=== PATIENT | male | born 1985 | race Caucasian/White ===

== ENCOUNTER 2017-10-14 20:39 | Emergency (ER) | END 2017-10-14 23:42 | disposition home or self-care (01) ==

== ENCOUNTER 2018-12-12 15:16 | Emergency (ER) | payer MEDICAID ==
[~2018-12-12] VITALS: Ht 162.6 cm; Wt 74.5 kg
[~2018-12-12 15:16] MED LIST: ACET325T33 PO; ASPI1TAB2 PO; FAMO40TA5 PO; RANI150T35 PO
[2018-12-12 15:17] VITALS: BP 140/75; PULSE 69; RESP 18; Ht 162.6 cm; Wt 74.5 kg
[2018-12-12] MEDS ORDERED: OFLO5DRO7 RIGHT EAR (16:32)
--- NOTE | 2018-12-12 16:36 | ERD ---
ER Documentation Chief Complaint Chief Complaint right ear pain HPI This is a 33-year-old male presents ED with right ear pain x3 days. Denies fevers, chills, runny nose, sore throat, chest pain, shortness breath, trouble breathing and all other symptoms. Denies history of diabetes mellitus. ROS All systems reviewed and are negative except as per history of present illness. Medications Home Meds Active Scripts Ofloxacin Otic (Ofloxacin Otic) 5 Ml Drops, 10 DROP RIGHT EAR DAILY for 7 Days, #1 BOTTLE Prov:SHILPI BRAUN PA-C 12/12/18 Acetaminophen* (Tylenol*) 325 Mg Tablet, 2 TAB PO Q8 PRN for PAIN AND OR ELEVATED TEMP, #20 TAB Prov:DARYN BAGLEY MD 10/14/17 Ranitidine Hcl* (Zantac*) 150 Mg Tablet, 150 MG PO BID PRN for EPIGASTRIC PAIN, #30 TAB Prov:DARYN BAGLEY MD 10/14/17 Famotidine* (Famotidine*) 40 Mg Tablet, 40 MG PO BID, #60 TAB Prov:KRISTA MONIQUE PA-C 02/07/16 Rbcqysj-Rrmgofrpgutge-Aeosfepm* (Excedrin Extra Strength*) 250-250-65 Mg Tablet, 1 TAB PO Q6H PRN for PAIN, #30 TAB Prov:KRISTA MONIQUE PA-C 02/07/16 Allergies Allergies: Coded Allergies: No Known Allergy (Unverified , 02/07/16) PMhx/Soc History of Surgery: No Anesthesia Reaction: No Hx Neurological Disorder: No Hx Respiratory Disorders: No Hx Cardiac Disorders: No Hx Psychiatric Problems: No Hx Miscellaneous Medical Probl: No Hx Alcohol Use: No Hx Substance Use: No Hx Tobacco Use: No Smoking Status: Never smoker FmHx Family History: No diabetes Physical Exam Vitals Vital Signs Date Temp Pulse Resp B/P (MAP) Pulse Ox O2 O2 Flow FiO2 Time Delivery Rate 12/12/18 98.2 69 18 140/75 99 15:17 (96) Physical Exam Const: No acute distress Head: Atraumatic Eyes: Normal Conjunctiva ENT: Normal External Ears, Nose and Mouth. When palpating the right tragus elicits pain, right external auditory canal is slightly edematous with white discharge noted in the canal, tympanic membrane is not visualized due to discharge, left TM is visualized and is not bulging, erythematous with no purulent air-fluid line seen, oropharynx is clear without any tonsillar adenopathy, exudate or erythema, normal nasal mucosa Neck: Full range of motion. No meningismus. Resp: Clear to auscultation bilaterally Cardio: Regular rate and rhythm, no murmurs Neur: Awake and alert Psych: Normal Mood and Affect Procedures/MDM ER COURSE: The patient was stable throughout ED course. I kept the patient and/or family informed of laboratory and diagnostic imaging results throughout the emergency room course. The patient was promptly evaluated and a treatment plan was devised based on H&P and other data. This plan was discussed with the patient who agreed and had no further questions or concerns prior to discharge. MEDICAL DECISION MAKING: This is a 33-year-old male presents ED with otitis externa. At this time there is no ENT emergency. No evidence of mastoiditis, sepsis, meningitis, among others. Vitals are stable patient can be managed close outpatient follow-up. Advised patient follow-up with primary care in the next 48 hours. Return to ED with any worsening symptoms DISPOSITION PLAN: We discussed follow up with the patient's primary care doctor within 24 to 48 hours. Patient counseled regarding my diagnostic impression and care plan. Prior to discharge all questions answered. Pt agrees with treatment plan and understands strict return precautions. Precautionary instructions provided including instructions to return to the ER if not improving or for any worsening or changing symptoms or concerns. ExitCare instructions provided. Prior to discharge, patients vital signs have been reviewed SPECIALIST FOLLOW UP RECOMMENDED: None Patient has been advised to follow up with primary care in 1-2 days. Disclaimer: Inadvertent spelling and grammatical errors are likely due to EHR/dictation software use and do not reflect on the overall quality of patient care. Also, please note that the electronic time recorded on this note does not necessarily reflect the actual time of the patient encounter. Blood Pressure Assessment: Patient's blood pressure was elevated (>120/80) but appears stable without evidence of hypertension emergency or urgency. The patient was counseled about the risks of hypertension and urged to pursue outpatient monitoring and therapy within a week with their primary care physician. Departure Diagnosis: Primary Impression: Otitis externa Otitis externa type: unspecified type Chronicity: acute Laterality: right Qualified Codes: H60.501 - Unspecified acute noninfective otitis externa, right ear Condition: Stable Patient Instructions: External Ear Infection (Adult) [facility] Usted se ryan hecho un examen mdico de control que le indica que no est en sha condicin que requiera tratamiento urgente en el Departamento de Emergencia. Un estudio ms profundo y el tratamiento de alford condicin pueden esperar sin ningn riesgo hasta que usted sea atendida/o en el consultorio de alford mdico o sha clnica. Es responsabilidad suya arreglar sha jordan para el seguimiento del brittany. MANEJO DE CONDICIONES NO URGENTES EN EL FUTURO 1) Si usted tiene un mdico de atencin primaria: Usted debera llamar a alford mdico de atencin primaria antes de venir al departamento de emergencia. Despus de las horas de consultorio, alford doctor o alford asociado/a est disponible por telfono. El mdico o enfermero de david en el servicio telefnico puede asesorarle por rosemary medio para atender el problema, o brittany contrario se puede programar sha jordan. 2) Si usted no tiene un mdico de atencin primaria: Llame al mdico o clnica de referencia que aparece abajo susan las horas de consultorio para hacer sha jordan para que le vean. CLINICAS: [facility] [phone] [facility] [phone] [facility] [phone] [facility]. [facility] [phone] [facility] [phone] [facility]. [phone] [place] Additional Instructions: Paciente aconseja volver a Departamento de urgencias inmediatamente para sntomas nuevos o que empeoran . Paciente aconseja posteriores con el PCP en 1-2 rosales . Paciente verbaliza la comprehensin y est de acuerdo con el tratamiento y el curso de accin. Si el paciente no tiene ninguna de atencin primaria pueden seguir con [facility] [address] [place] [address] o [facility] + [address] [address] SHILPI BRAUN PA-C Dec 12, 2018 16:36
== END 2018-12-12 16:55 | disposition home or self-care (01) ==
LOC: FTE 15:16
DX: H60.501 Unspecified acute noninfective otitis externa, right ear (principal)
CPT/HCPCS: 99283